=== PATIENT | male | born 1975 | race Caucasian/White ===

== ENCOUNTER 2020-02-24 08:42 | Day surgery (SDC) | payer OTHER ==
[2020-02-22 11:56] VITALS: BMI 30.7
[2020-02-24] MEDS ORDERED: MIDAZOLAM HCL 2 MG/2 ML SINGLE DOSE VIAL ONE (09:32)
[2020-02-24] MEDS ORDERED: DEXAMETHASONE SOD PHOSPHATE/PF 10 MG/ML SDV ONE (09:33)
[2020-02-24] MEDS ORDERED: ROPIVACAINE HCL 0.5% 30ML VIAL ONE (09:34)
[2020-02-24] MEDS ORDERED: EPINEPHrine 1:1,000 1 MG/1 ML - 30ML VIAL (INJECTION) ONE (10:43)
[2020-02-24] MEDS ORDERED: PROPOFOL 20 ML ONE (11:32)
[2020-02-24] MEDS ORDERED: ceFAZolin SODIUM 1 GM VIAL ONE (11:40)
[2020-02-24] MEDS ORDERED: oxyCODONE HCL 5 MG TABLET PO PRN (14:32)
[2020-02-24] MEDS ORDERED: ONDANSETRON 4 MG/2 ML VIAL IVPUSH PRN (14:32)
[2020-02-24] MEDS ORDERED: LACTATED RINGERS SOLUTION 1,000 ML IV SCH (14:45)
[2020-02-24 14:56] VITALS: PULSE 72
[2020-02-24 15:47] VITALS: BP 138/74; TEMP 98
== END 2020-02-24 15:35 | disposition home or self-care (01) ==
LOC: FASU 08:42 → EDSEX 09:30 → FASU 15:35
PROVIDERS: ATTEND Orthopaedic Surgery Sports Medicine
PROC: 0RNJ4ZZ Release Right Shoulder Joint, Percutaneous Endoscopic Approach (ICD-10-PCS; 2020-02-24)
PROC: 0RBJ4ZZ Excision of Right Shoulder Joint, Percutaneous Endoscopic Approach (ICD-10-PCS; 2020-02-24)
PROC: 0LQ14ZZ Repair Right Shoulder Tendon, Percutaneous Endoscopic Approach (ICD-10-PCS; principal; 2020-02-24 12:04)
DX: M75.121 Complete rotator cuff tear or rupture of right shoulder, not specified as traumatic (principal); M75.41 Impingement syndrome of right shoulder; M24.111 Other articular cartilage disorders, right shoulder
CPT/HCPCS: 82962; 94760

== ENCOUNTER 2023-02-17 14:42 | Emergency (ER) | payer OTHER ==
[2023-02-17 14:47] VITALS: BP 137/84; PULSE 82; RESP 18; TEMP 98.5; BMI 27.8
[2023-02-17] MEDS ORDERED: IBUPROFEN 600 MG TABLET (FP) PO ONE ×2 (15:19→15:54)
[2023-02-17] MEDS ORDERED: BUPIVACAINE HCL/PF 0.5% (5 MG/ML) 30 ML VIAL IJ ONE (15:31)
== END 2023-02-17 17:01 | disposition home or self-care (01) ==
LOC: FER 14:42
DX: K08.89 Other specified disorders of teeth and supporting structures (principal)
CPT/HCPCS: 99283-25